=== PATIENT | male | born 1940 | race Caucasian/White ===

== ENCOUNTER 2017-03-20 13:52 | Emergency (ER) | payer MEDICARE, BC ==
[2017-03-20 14:06] VITALS: TEMP 99.4
[2017-03-20 14:32] LABS: BASOPHILS % (AUTO) 0 % (0-3); EOSINOPHILS % (AUTO) 2 % (0-9); HEMATOCRIT 33 % (39-53); MEAN CORPUSCULAR HGB CONC 36.8 gm/dl (32.0-36.0); MEAN CORPUSCULAR VOLUME 89 fL (80-100); MONOCYTES % (AUTO) 9.7 % (0-12); NEUTROPHILS % (AUTO) 70.8 % (37-80)
[2017-03-20 14:49] LABS: ALBUMIN 3.5 gm/dl (3.4-5.0); CALCIUM 9.2 mg/dl (8.5-10.1)
[2017-03-20] MEDS ORDERED: LABETALOL HYDROCHLORIDE 100 MG TAB PO SCH (15:45)
[2017-03-20] MEDS ORDERED: LABETALOL HYDROCHLORIDE 100 MG TAB ONE (15:47)
[2017-03-20 15:58] VITALS: RESP 20
[2017-03-20 15:59] VITALS: BP 189/99; PULSE 86; O2SAT 100
== END 2017-03-20 16:30 | disposition short-term general hospital (02) | DRG 305 ==
LOC: ED 13:52
DX: I10 Essential (primary) hypertension (principal); R06.02 Shortness of breath
CPT/HCPCS: 36415; 71010; 80053; 84484; 85025; 93005; 99284; 99285

== ENCOUNTER 2017-09-17 18:36 | Outpatient (CLI) | payer MEDICARE, BC ==
[2017-03-20 15:59] VITALS: O2SAT 100
== END 2017-09-17 18:37 | disposition home or self-care (01) | DRG 554 ==
LOC: CONVCARE 18:36
PROVIDERS: ATTEND Orthopaedic Surgery
DX: M16.11 Unilateral primary osteoarthritis, right hip (principal)

== ENCOUNTER 2019-04-20 09:11 | Emergency (ER) | payer MEDICARE, BC ==
[2019-04-20 09:43] LABS: BASOPHILS % (AUTO) 1 % (0-3); EOSINOPHILS % (AUTO) 3 % (0-9); HEMATOCRIT 36 % (39-53); HEMOGLOBIN 12.1 gm/dl (13.5-17.7); LYMPHOCYTES % (AUTO) 17.3 % (10-50); MEAN CORPUSCULAR HGB CONC 33.5 gm/dl (32.0-36.0); MONOCYTES % (AUTO) 8.3 % (0-12)
[2019-04-20 09:44] LABS: MEAN CORPUSCULAR VOLUME 99 fL (80-100)
[2019-04-20 09:56] LABS: ALBUMIN 3.6 gm/dl (3.4-5.0); ALKALINE PHOSPHATASE 87 IU/L (46-116); ALT 28 IU/L (14-63); AST 20 IU/L (15-37); BILIRUBIN,TOTAL 1.3 mg/dl (0.2-1.0); BLOOD UREA NITROGEN 22 mg/dl (7-18); CALCIUM 8.7 mg/dl (8.5-10.1); CARBON DIOXIDE 27.5 mEq/L (21-32); CHLORIDE 104 mMol/L (98-107); CREATININE 1.38 mg/dl (0.80-1.30); GLUCOSE 119 mg/dl (74-106); TOTAL PROTEIN 6.8 gm/dl (6.4-8.2); TROP I < 0.017 ng/ml (0.000-0.056)
[2019-04-20 15:56] VITALS: TEMP 97.6
[2019-04-20 16:04] VITALS: BP 106/64; PULSE 48; RESP 18; O2SAT 99
== END 2019-04-20 11:28 | disposition home or self-care (01) | DRG 310 ==
LOC: ED 09:11
DX: R00.1 Bradycardia, unspecified (principal); R42 Dizziness and giddiness
CPT/HCPCS: 36415; 80053; 84484; 85025; 93005; 99283; 99284